=== PATIENT | female | born 1980 | race Caucasian/White ===

== ENCOUNTER 2016-07-10 07:09 | Inpatient (IN) | payer BC, OTHER ==
[2016-07-10] VITALS (10 sets, daily range): BP systolic 105–137; BP diastolic 57–79
[~2016-07-10] VITALS: Ht 157.5 cm; Wt 67.0 kg
[~2016-07-10 07:09] MED LIST: NOHOMEMEDS
[2016-07-10 08:50] LABS: HEMATOCRIT 28.1 % (36.0-46.0); MCH 33.3 PG (29.0-34.0); MCHC 34.2 G/DL (30.0-36.0); MCV 97.6 FL (83-99); MEAN PLAT.VOLUME 8.6 uM^3 (9.5-12.4); PLATELET COUNT 280 K/uL (156-360); RBC DIS.WIDTH-CV 13.6 % (11.8-14.6); RBC DIS.WIDTH-SD 47.9 % (39-53); RED BLOOD COUNT 2.88 M/uL (3.80-5.20); WHITE BLOOD COUNT 8.6 K/uL (4.1-10.2)
[2016-07-10 08:59] LABS: EOSINOPHIL (%) 0.8 % (0-5); EOSINOPHIL COUNT 0.1 K/uL (0-0.3); IMMATURE GRANULOCYTE (%) 2.1 % (0.0-0.7); IMMATURE GRANULOCYTE COUNT 0.2 K/uL; LYMPHOCYTE COUNT 1.9 K/uL (1.0-2.8); MONOCYTE (%) 7.3 % (3-12); MONOCYTE COUNT 0.6 K/uL (0-0.8); NEUTROPHIL (%) 67.4 % (45-76); NEUTROPHIL COUNT 5.8 K/uL (1.8-6.4)
[2016-07-10 09:45] LABS: HEMATOLOGY COMMENT 1 SMEAR COMPATIBLE; USER ID CL
[2016-07-10] MEDS ORDERED: IBUPROFEN800 MG PO (12:23)
[2016-07-11 07:31] VITALS: BP 104/55
== END 2016-07-11 17:00 | disposition home or self-care (01) | DRG 775 ==
LOC: LDRP-OP 07:09 → 2WEST 07:10 → LDRP-OP 09:21 → 2WEST 12:04 → LDRP-OP 08-16 14:34
PROVIDERS: Nurse Practitioner
DX: O44.03 Complete placenta previa NOS or without hemorrhage, third trimester (principal); O26.891 Other specified pregnancy related conditions, first trimester; N85.6 Intrauterine synechiae; O99.334 Smoking (tobacco) complicating childbirth; F17.210 Nicotine dependence, cigarettes, uncomplicated; O99.02 Anemia complicating childbirth; Z37.0 Single live birth; Z3A.39 39 weeks gestation of pregnancy
CPT/HCPCS: 85025; J0595; J7120